=== PATIENT | female | born 1980 | race Caucasian/White ===

== ENCOUNTER → 2016-12-12 | Outpatient (CLI) | payer MEDICARE, OTHER ==
--- NOTE | 2016-12-12 21:36 | MR ---
EXAMINATION TYPE: MR lumbar spine wo con DATE OF EXAM: 12/12/2016 8:52 PM COMPARISON: NONE HISTORY: low back pain since childhood CONTRAST: 0 mL intravenous MultiHance. TECHNIQUE: Multiplanar, multisequence images of the lumbar spine were acquired. FINDINGS: Cord terminates at the T12-L1 level. Minimal disc desiccation is present L4-5 L5-S1. L5-S1: No significant disc bulge or disc herniation. No spinal canal stenosis. No foraminal stenosi s. There may be some mild disc space narrowing.. L4-L5 through T12-L1: No significant disc bulge or disc herniation. No spinal canal stenosis. No fo raminal stenosis. IMPRESSION: 1. Minimal disc desiccation L4-5, L5-S1. 2. Minimal disc space narrowing at L5-S1..
== END | disposition home or self-care (01) ==
LOC: RADMRIMAIN 20:13
PROVIDERS: ATTEND Nurse Practitioner Acute Care
DX: M48.07 Spinal stenosis, lumbosacral region (principal); Z91.041 Radiographic dye allergy status
CPT/HCPCS: 72148

== ENCOUNTER → 2017-02-24 | Outpatient (CLI) | payer MEDICARE, OTHER ==
--- NOTE | 2017-02-24 23:17 | MR ---
EXAMINATION TYPE: MR foot RT wo con DATE OF EXAM: 02/24/2017 COMPARISON: NONE HISTORY: Pain, Redness, Swelling, Limited ROM, Right Foot Standard multiplanar, multisequence MRI departmental protocol Multiplanar, multisequence images of the right foot were obtained. There is no contrast. FINDINGS: The plantar fascia appears intact. On the T2 images there is increased signal in the planta r aspect of the hindfoot inferior to the calcaneus. The metatarsals are intact. Tarsal bones appear i ntact. I see no fracture. Ankle mortise is anatomic. Collateral ligaments of the ankle are intact. Ac hilles tendon appears normal. The medial and lateral flexor tendons of the ankle are intact. Extensor tendons of the ankle are intact. There is evidence of mild joint effusion involving the first MP darnell nt. There is a small ankle joint effusion also. IMPRESSION: There is mild soft tissue edema involving the plantar aspect of the hindfoot of uncertain significanc e. There is mild effusion of the first MP joint that is consistent with nonspecific synovitis. No fractu re. No evidence of ligament or tendon tear. There is mild ankle joint effusion also consistent with n onspecific synovitis.
== END | disposition home or self-care (01) ==
LOC: RADMRIMAIN 18:19
PROVIDERS: ATTEND Podiatrist Foot & Ankle Surgery
DX: S96.211A Strain of intrinsic muscle and tendon at ankle and foot level, right foot, initial encounter (principal)

== ENCOUNTER → 2017-05-16 | Outpatient (CLI) | payer MEDICARE, OTHER ==
--- NOTE | 2017-05-16 20:25 | MR ---
EXAMINATION TYPE: MR cervical spine wo con DATE OF EXAM: 05/16/2017 COMPARISON: Cervical spine MRI HISTORY: Constant Neck pain, Cortisone Injection 05/12/2017 TECHNIQUE: Multiplanar, multisequence images of the cervical spine were acquired. C2-C3: No evidence for degenerative disc disease. No disc bulge/herniation or protrusion. No Canal stenosis. Foramina are patent bilaterally. C3-C4: Posterior central disc herniation may contact the anterior cervical cord. Lateral extension of endplate disc complex encroaches somewhat on the neural foramina, no significant central stenosis. T here is loss of disc height signal. C4-C5: Mild bilateral foraminal encroachment is present. No evident central canal stenosis. Minimal c entral posterior disc bulge present. There is loss of disc height and signal. C5-C6: Small central posterior disc bulge causes slight anterior mass effect on the thecal sac. There is mild right-sided foraminal encroachment. No significant central stenosis. Loss of disc height and signal compatible with disc desiccation and degenerative disc disease. C6-C7: Central posterior disc bulge causes mild anterior mass effect on the thecal sac. There is loss of disc height and signal. C7-T1: No evidence for degenerative disc disease. No disc bulge/herniation or protrusion. No Canal stenosis. Foramina are patent bilaterally. Cervical segments are intact. There is normal alignment. Cervical spinal cord is of normal signal. Craniovertebral junction relationships are within normal limits. Cervical vertebral bodies show pre served height. IMPRESSION: Degenerative disc disease as described.
== END | disposition home or self-care (01) ==
LOC: RADMRIMAIN 19:15
PROVIDERS: ATTEND Nurse Practitioner Acute Care
DX: M50.30 Other cervical disc degeneration, unspecified cervical region (principal)
CPT/HCPCS: 72141

== ENCOUNTER → 2018-03-19 | Outpatient (CLI) | payer MEDICARE, OTHER ==
--- NOTE | 2018-03-19 20:54 | CT ---
EXAMINATION TYPE: CT soft tissue neck wo con DATE OF EXAM: 03/19/2018 HISTORY: Upper thoracic neck pain and swelling. COMPARISON: Thyroid ultrasound November 16, 2015. MRI cervical spine May 16, 2017 CT DLP: 744.6 mGycm. Automated Exposure Control for Dose Reduction was Utilized. TECHNIQUE: CT scan of the neck is performed without IV contrast, axial images are obtained, coronal and sagittal reformatted images are reviewed. FINDINGS: Lack of IV contrast is noted to limit evaluation for mucosal lesions and neck adenopathy. Airway: Thyroid gland appears normal in size. Parotid/submandibular glands: No gross abnormality see n. Carotid/Vascular Structures: No significant calcified plaque. Osseous Structures: No suspicious abnormality is seen. Other: There are prominent but subcentimeter lymph nodes throughout the neck bilaterally including in volvement in the anterior superior mediastinum of the upper to mid thorax. No cysts definitive greate r than 1 cm neck adenopathy is identified. There is near complete opacified right maxillary sinus. To be product of large mucous retention cyst or polyp seen best on coronal image 22 measuring 2.5 cm long axis. IMPRESSION: No suspicious mass or focal fluid collection identified.
== END | disposition home or self-care (01) ==
LOC: RADCTMAIN 16:52
PROVIDERS: ATTEND Psychiatry & Neurology Neurology
DX: R22.0 Localized swelling, mass and lump, head (principal); Z91.041 Radiographic dye allergy status
CPT/HCPCS: 70490

== ENCOUNTER → 2018-05-08 | Outpatient (CLI) | payer MEDICARE, OTHER | END | disposition home or self-care (01) | LOC: LABWHC1 12:47 | PROVIDERS: ATTEND Nurse Practitioner Acute Care | DX: I49.9 Cardiac arrhythmia, unspecified (principal) | CPT/HCPCS: 93005 ==

== ENCOUNTER → 2018-08-10 | Outpatient (CLI) | payer MEDICARE, OTHER ==
[2018-08-10 13:08] LABS: Basophils # (A) 0.1 k/uL (0-0.2); Basophils % (A) 1 %; Eosinophils # (A) 0.2 k/uL (0-0.7); Eosinophils % (A) 2 %; HCT 43.8 % (34.0-46.0); HGB 14.1 gm/dL (11.4-16.0); Lymphocytes # (A) 3.5 k/uL (1.0-4.8); Lymphocytes % (A) 34 %; MCH 32.3 pg (25.0-35.0); MCHC 32.3 g/dL (31.0-37.0); MCV 100.2 fL (80.0-100.0); Mean Platelet Volume 6.3; Monocytes # (A) 0.4 k/uL (0-1.0); Monocytes % (A) 4 %; Neutrophils % (A) 58 %; Platelet Count 273 k/uL (150-450); RBC 4.37 m/uL (3.80-5.40); RDW 12.7 % (11.5-15.5); WBC 10.3 k/uL (3.8-10.6)
[2018-08-10 15:07] LABS: Erythrocyte Sedimentation Rate 3 mm/hr (0-20)
[2018-08-10 19:52] LABS: Albumin 4.5 g/dL (3.80-4.90); Albumin/Globulin Ratio 2.65 (1.20-2.10); Anion Gap 11.7 mmol/L (4.00-12.00); C Reactive Protein 0.7 mg/dL (0.0-0.8); Calcium 9.1 mg/dL (8.7-10.3); Carbon Dioxide 24.3 mmol/L (21.6-31.8); Globulin 1.7 g/dL (1.6-3.3); Potassium 4.2 mmol/L (3.5-5.5); Total Bilirubin 0.4 mg/dL (0.3-1.2); Total Protein 6.2 g/dL (6.2-8.2)
[2018-08-10 20:35] LABS: Iron Saturation 22.77 (12.00-45.00); Rheumatoid Factor 8 IU/mL (0-15)
== END | disposition home or self-care (01) ==
LOC: LABWHC1 12:15
PROVIDERS: ATTEND Nurse Practitioner Acute Care
DX: M35.3 Polymyalgia rheumatica (principal); E61.1 Iron deficiency
CPT/HCPCS: 36415; 80053; 82085; 83540; 83550; 84466; 85025; 85652; 86038; 86140; 86431

== ENCOUNTER → 2019-06-07 | Outpatient (CLI) | payer MEDICARE, OTHER ==
[2019-06-07 11:23] LABS: Basophils # (A) 0.1 k/uL (0-0.2); Basophils % (A) 1 %; Eosinophils # (A) 0.3 k/uL (0-0.7); Eosinophils % (A) 3 %; HCT 43.8 % (34.0-46.0); HGB 15.2 gm/dL (11.4-16.0); Lymphocytes % (A) 40 %; MCH 34.9 pg (25.0-35.0); MCHC 34.8 g/dL (31.0-37.0); MCV 100.4 fL (80.0-100.0); Monocytes # (A) 0.4 k/uL (0-1.0); Monocytes % (A) 4 %; Neutrophils # (A) 5.1 k/uL (1.3-7.7); Neutrophils % (A) 51 %; Platelet Count 273 k/uL (150-450); RBC 4.36 m/uL (3.80-5.40); RDW 12.2 % (11.5-15.5)
[2019-06-07 16:17] LABS: African American GFR (CKD) 125.6 (60.0-200.0); Albumin 4.2 g/dL (3.80-4.90); Albumin/Globulin Ratio 2.21 (1.60-3.17); Anion Gap 10.6 mmol/L (4.00-12.00); BUN/Creat Ratio 14.29 Ratio (12.00-20.00); Calcium 8.9 mg/dL (8.7-10.3); Carbon Dioxide 27.4 mmol/L (21.6-31.8); Chol/HDL Ratio 3.54; Globulin 1.9 g/dL (1.6-3.3); Potassium 4.1 mmol/L (3.5-5.5); Total Bilirubin 0.4 mg/dL (0.3-1.2); Total Protein 6.1 g/dL (6.2-8.2)
== END | disposition home or self-care (01) ==
LOC: LABWHC1 10:48
PROVIDERS: ATTEND Nurse Practitioner Family
DX: E03.9 Hypothyroidism, unspecified (principal); I10 Essential (primary) hypertension; E78.1 Pure hyperglyceridemia; E11.65 Type 2 diabetes mellitus with hyperglycemia; E78.00 Pure hypercholesterolemia, unspecified
CPT/HCPCS: 36415; 80053; 80061; 83721; 84439; 84443; 85025

== ENCOUNTER → 2019-09-27 | Outpatient (CLI) | payer MEDICARE, OTHER | END | disposition home or self-care (01) | LOC: LABWHC1 11:11 | PROVIDERS: ATTEND Nurse Practitioner Acute Care | DX: I49.9 Cardiac arrhythmia, unspecified (principal) | CPT/HCPCS: 36415; 93005 ==

== ENCOUNTER → 2020-01-27 | Outpatient (CLI) | payer MEDICARE, OTHER ==
--- NOTE | 2020-01-27 10:12 | CT ---
EXAMINATION TYPE: CT sinus wo con DATE OF EXAM: 01/27/2020 COMPARISON: Soft tissue neck 03/19/2018 HISTORY: Chronic sinusitis CT DLP: 628.7 mGycm. Automated Exposure Control for Dose Reduction was Utilized. TECHNIQUE: CT scan of the sinuses is performed without contrast, axial images are obtained, coronal r eformatted images are also reviewed. FINDINGS: There is persistent density noted within the right maxillary sinus, lobular appearance is s imilar to prior exam, findings may represent mucous retention cyst. Ostiomeatal units are patent. Muc operiosteal thickening is present in the bilateral maxillary sinuses, there is no air-fluid level pre sent. Visualized portion of mastoid air cells show no abnormal opacification. The globes are intact bilate rally. IMPRESSION: Findings may represent mucous retention cyst, chronic sinusitis.
== END | disposition home or self-care (01) ==
LOC: RADCTMAIN 07:08
PROVIDERS: ATTEND Otolaryngology
DX: J32.9 Chronic sinusitis, unspecified (principal)
CPT/HCPCS: 70486

== ENCOUNTER → 2020-09-11 | Outpatient (CLI) | payer MEDICARE, OTHER | END | disposition home or self-care (01) | LOC: LABWHC1 11:03 | PROVIDERS: ATTEND Family Medicine | DX: Z01.818 Encounter for other preprocedural examination (principal) | CPT/HCPCS: 36415; 93005 ==

== ENCOUNTER → 2021-01-29 | Outpatient (CLI) | payer MEDICARE, OTHER | END | disposition home or self-care (01) | CPT/HCPCS: 77063; 77067; 81241 ==

== ENCOUNTER → 2021-11-24 | Outpatient (CLI) | payer MEDICARE, OTHER ==
--- NOTE | 2021-11-24 16:32 | US ---
EXAMINATION TYPE: US abdomen complete DATE OF EXAM: 11/24/2021 COMPARISON: NONE CLINICAL HISTORY: R10.11 RT UPPER QUAD PAIN. EXAM MEASUREMENTS: Liver Length: 18.6 cm Gallbladder Wall: 0.2 cm CBD: 0.3 cm Spleen: 10.6 cm Right Kidney: 13.4 x 4.5 x 5.7 cm Left Kidney: 13.3 x 5.2 x 5.5 cm Patient of large body habitus technically difficult study. Pancreas: visualized portions appear wnl Liver: Increased attenuation, measures large Gallbladder: wnl Evidence for sonographic Amezcua's sign: no CBD: wnl Spleen: wnl Right Kidney: measures. Mildly enlarged Left Kidney: measures mildly enlarged inferior pole appears to show possible dilated renal pelvis Upper IVC: wnl Abd Aorta: visualized portions appear wnl No aneurysm is visualized abdominal aorta. Visualized pancreas appears within normal limits. IVC is s een near the hepatic dome. Heterogeneous hyperechoic appearance of the liver. Violation for focal masses is suboptimal due to th e heterogeneity. No surrounding ascites. No intraluminal gallstones. No biliary dilatation. No hydronephrosis in either kidney. Kidneys symmetric and mildly enlarged in size. Spleen is normal in size. IMPRESSION: Suspect diffuse fatty infiltration of liver. Suboptimal study without acute finding ident ified.
== END | disposition home or self-care (01) ==
LOC: RADUSWWP 09:25
PROVIDERS: ATTEND Family Medicine
DX: R10.11 Right upper quadrant pain (principal)
CPT/HCPCS: 76700

== ENCOUNTER 2023-08-12 11:58 | Emergency (ER) | payer MEDICARE, OTHER ==
[2023-08-12] MEDS ORDERED: ACETAMINOPHEN TAB 500 MG TAB PO STA (12:28)
[2023-08-12] MEDS ORDERED: IBUPROFEN 800 MG TAB PO STA (12:28)
[2023-08-12] MEDS ORDERED: ONDANSETRON ODT 4 MG TAB PO STA (12:28)
--- NOTE | 2023-08-12 12:34 | ED ---
Head Injury HPI - General Chief complaint: Fall Stated complaint: HEAD INJURY Time Seen by Provider: 08/12/23 12:09 Source: patient, EMS, RN notes reviewed Mode of arrival: EMS Limitations: no limitations - History of Present Illness Initial comments: This is a 43-year-old female who presents to the emergency department for a head injury. States that she was changing the bandage on her finger last night, and it grossed her out, and she became dizzy and fell backwards and hit her head. She injured her finger over [place] and ended up losing half of the finger, and whenever she changes her bandage, it grosses her out. States that when she hit her head, she believes that she lost consciousness. She is not taking any blood thinners. She continues to complain of a headache and reports associated nausea. She has generalized soreness, but denies any other injuries. MD Complaint: head injury - Related Data Previous Rx's Medication Instructions Recorded ARIPiprazole [Abilify] 5 mg PO DAILY 30 Days #30 tab 10/11/22 Atorvastatin [Lipitor] 20 mg PO DAILY 30 Days #30 tab 10/11/22 Fenofibrate [Lofibra] 160 mg PO HS 30 Days #30 tab 10/11/22 Nicotine 14Mg/24Hr Patch [Habitrol] 1 patch TRANSDERM DAILY 14 Days 10/11/22 #14 patch Pantoprazole [Protonix] 40 mg PO AC-BRKFST 30 Days #30 tab 10/11/22 lisinopriL [Zestril] 5 mg PO DAILY 30 Days #30 tab 10/11/22 metFORMIN HCL [Glucophage] 1,000 mg PO BID 30 Days #120 tab 10/11/22 Allergies/Adverse reactions: Allergies Allergy/AdvReac Type Severity Reaction Status Date / Time No Known Allergies Allergy Verified 10/05/22 21:07 Review of Systems ROS Statement: Those systems with pertinent positive or pertinent negative responses have been documented in the HPI. ROS Other: All systems not noted in ROS Statement are negative. Past Medical History Past Medical History: Diabetes Mellitus, Osteoarthritis (OA) Additional Past Medical History / Comment(s): hypomobility syndrome, leukocytosis History of Any Multi-Drug Resistant Organisms: None Reported Past Surgical History: Orthopedic Surgery Past Anesthesia/Blood Transfusion Reactions: Unable to Obtain Past Psychological History: PTSD Smoking Status: Current every day smoker Past Alcohol Use History: Occasional Past Drug Use History: Marijuana General Exam Limitations: no limitations General appearance: alert, in no apparent distress Head exam: Present: atraumatic, normocephalic, normal inspection Eye exam: Present: normal appearance, PERRL, EOMI. Absent: scleral icterus, conjunctival injection, periorbital swelling Respiratory exam: Present: normal lung sounds bilaterally. Absent: respiratory distress, wheezes, rales, rhonchi, stridor Cardiovascular Exam: Present: regular rate, normal rhythm, normal heart sounds. Absent: systolic murmur, diastolic murmur, rubs, gallop, clicks Neurological exam: Present: alert, oriented X3, CN II-XII intact Psychiatric exam: Present: normal affect, normal mood Skin exam: Present: warm, dry, intact, normal color. Absent: rash Course Vital Signs 08/12/23 08/12/23 12:14 14:41 Pulse Rate 108 H 98 Respiratory 20 18 Rate Blood Pressure 125/94 126/78 O2 Sat by Pulse 98 99 Oximetry Medical Decision Making - Medical Decision Making This is a 43-year-old female who presents to the emergency department for a head injury. Was pt. sent in by a medical professional or institution? @ -No Did you speak to anyone other than the patient for history? @ -No Did you review nursing and triage notes? @ -Yes, and I agree, it is accurate with regards to the patient's symptoms. Were old charts reviewed? @ -No Differential Diagnosis? @ -Differential Diagnosis Head Injury: Contusion, hematoma, intracranial hemorrhage, skull fracture, whiplash, concussion, this is not meant to be an all-inclusive list. EKG interpreted by me (3pts min.)? @ -Not obtained X-rays interpreted by me (1pt min.)? @ -Not obtained CT interpreted by me (1pt min.)? @ -Computed tomography scan of the brain and c-spine obtained. My interpretation identifies no evidence of an acute intracranial hemorrhage, skull fracture, or cervical spine fracture. U/S interpreted by me (1pt. min.)? @ -Not obtained What testing was considered but not performed? (CT, X-rays, U/S, labs)? Why? @ -None What meds were considered but not given? Why? @ -None Did you discuss the management of the patient with other professionals? @ -No Did you reconcile home meds? @ -No Was smoking cessation discussed for >3mins.? @ -I discussed smoking cessation for greater than 3 minutes. The risk of smoking were discussed with the patient including but not limited to risks of cancer, stroke, coronary artery disease and COPD. Also discussed with patient were multiple methods of quitting smoking. Lastly we discussed the financial cost of smoking. Was critical care preformed (if so, how long)? @ -No Were there social determinants of health that impacted care today? How? (Homelessness, low income, unemployed, alcoholism, drug addiction, transpor tation, low edu. Level, literacy, decrease access to med. care, alf, rehab)? @ -No Was there de-escalation of care discussed even if they declined? (Discuss DNR or withdrawal of care, Hospice)? @ -No What co-morbidities impacted this encounter? (DM, HTN, Smoking, COPD, CAD, Cancer, CVA, Hep., AIDS, mental health diagnosis, sleep apnea, morbid obesity)? @ -None Was patient admitted / discharged? @ -Discharged. CT scan of the brain/c-spine obtained revealing no acute process. Patient treated with Ibuprofen, Tylenol, and Zofran with improvement in symptoms. Advised Ibuprofen and Tylenol as needed for any additional headaches. Patient discharged home in stable condition. Undiagnosed new problem with uncertain prognosis? @ -None Drug Therapy requiring intensive monitoring for toxicity (Heparin, Nitro, I nsulin, Cardizem)? @ -None Were any procedures done? @ -None Diagnosis/symptom? @ -Head injury Acute, or Chronic, or Acute on Chronic? @ -Acute Uncomplicated (without systemic symptoms) or Complicated (systemic symptoms)? @ -Uncomplicated Side effects of treatment? @ -None Exacerbation, Progression, or Severe Exacerbation] @ -Not applicable Poses a threat to life or bodily function? @ -No Return precautions reviewed in depth, the patient is instructed to return to the emergency department with any new, worsening, or concerning symptoms. Patient verbalized understanding. This case was discussed in detail with the attending ED physician, Dr. Barajas. Presentation, findings, and treatment plan discussed in detail as well. - Radiology Data Radiology results: report reviewed, image reviewed Disposition Clinical Impression: Nicotine dependence, Head injury Disposition: HOME SELF-CARE Instructions (If sedation given, give patient instructions): Head Injury (ED) Additional Instructions: Return to the emergency department with any new, worsening, or concerning symptoms. Follow up with your primary care provider in 1-2 days. Is patient prescribed a controlled substance at d/c from ED?: No Referrals: Tj Kumar MD [Primary Care Provider] - 1-2 days Time of Disposition: 14:14
[2023-08-12] MEDS ORDERED: HYDROcodone/APAP 7.5-325MG 1 EACH TAB PO ONE (13:49)
--- NOTE | 2023-08-12 13:58 | CT ---
EXAMINATION TYPE: CT brain cspine wo con DATE OF EXAM: 08/12/2023 COMPARISON: MRI cervical spine 05/16/2017 HISTORY: Head injury x [address] DLP: 1319.8 mGycm, Automated exposure control for dose reduction was used. CONTRAST: None CT of the brain is performed utilizing 3 mm thick sections through the posterior fossa and 3 mm thick sections through the remaining calvarium. Study is performed within 24 hours of arrival to the hospital. No abnormal hyperdensity is present to suggest an acute intracranial hemorrhage. No mass lesion is evident. No acute infarcts are evident. Ventricles and sulci are appropriate for the patient age. Paranasal sinuses and mastoid air cells within the [id number] are clear. IMPRESSIONS: 1. No acute intracranial process. Follow-up MRI can be performed as clinically indicated. CT cervical spine. COMPARISON: None CT of the cervical spine is performed in the axial plane at 2 mm thick sections. Reconstructed image s in the coronal, and sagittal plane are reviewed on the computer. No acute fractures are evident. There is slight kyphosis present related to patient positioning or muscle spasm. Disc heights are preserved. Vertebral body heights are preserved. No spinal canal stenosis is evident. No neural foraminal stenosis is evident. IMPRESSION: 1. Mild kyphosis related to patient positioning or muscle spasm. 2. No acute osseous abnormality radiographically apparent.
[2023-08-12] MEDS ORDERED: ONDANSETRON 4 MG ODT STARTER PACK 2 TAB BTL PO STA (14:06)
[2023-08-12 15:02] VITALS: BP 126/78; PULSE 98; RESP 18
== END 2023-08-12 14:43 | disposition home or self-care (01) ==
LOC: EC 11:58
DX: S09.90XA Unspecified injury of head, initial encounter (principal); E11.9 Type 2 diabetes mellitus without complications; F12.90 Cannabis use, unspecified, uncomplicated; F17.200 Nicotine dependence, unspecified, uncomplicated; W18.30XA Fall on same level, unspecified, initial encounter
CPT/HCPCS: 72125; 70450; 99285; S0119

== ENCOUNTER 2024-04-03 21:22 | Emergency (ER) | payer MEDICARE, OTHER ==
[2024-04-03 23:19] LABS: Glucose,Whole Blood 236 mg/dL (70-110)
[2024-04-04 00:54] LABS: Basophils % (A) 0 %; Eosinophils # (A) 0.2 k/uL (0-0.7); Eosinophils % (A) 1 %; HCT 41.1 % (34.0-46.0); HGB 13.9 gm/dL (11.4-16.0); Lymphocytes # (A) 3.7 k/uL (1.0-4.8); Lymphocytes % (A) 30 %; MCH 30.6 pg (25.0-35.0); MCHC 33.9 g/dL (31.0-37.0); MCV 90.3 fL (80.0-100.0); Mean Platelet Volume 7.2; Monocytes # (A) 0.6 k/uL (0-1.0); Monocytes % (A) 5 %; Neutrophils # (A) 7.6 k/uL (1.3-7.7); Neutrophils % (A) 63 %; Platelet Count 329 k/uL (150-450); RBC 4.55 m/uL (3.80-5.40); RDW 12.5 % (11.5-15.5); WBC 12.2 k/uL (3.8-10.6)
[2024-04-04 01:07] LABS: Potassium 4.1 mmol/L (3.5-5.1)
[2024-04-04 01:10] LABS: ALT 21 U/L (4-34); AST 20 U/L (14-36); African American GFR (CKD) >90 (>60 ml/min/1.73 sqM); Albumin 3.8 g/dL (3.5-5.0); Alkaline Phosphatase 64 U/L (38-126); Anion Gap 6 mmol/L; Blood Urea Nitrogen 11 mg/dL (7-17); Calcium 9.3 mg/dL (8.4-10.2); Carbon Dioxide 23 mmol/L (22-30); Chloride 106 mmol/L (98-107); Glucose 233 mg/dL (74-99); Non-African American GFR(CKD) >90 (>60 ml/min/1.73 sqM); Sodium 135 mmol/L (137-145); Total Bilirubin 0.5 mg/dL (0.2-1.3); Total Protein 6.3 g/dL (6.3-8.2)
[2024-04-04 07:07] LABS: Appearance,Urine Cloudy (Clear); Bacteria,Urine Few /hpf; Bilirubin,Urine Negative (Negative); Blood,Urine Negative (Negative); Color,Urine Yellow; Glucose,Urine (UA) 4+ (Negative); Hyaline Casts,Urine 19 /lpf (0-2); Ketones,Urine Negative (Negative); Leukocyte Esterase,Urine Negative (Negative); Mucus,Urine Many /hpf; Nitrite,Urine Negative (Negative); PH, Urine 5.5 (5.0-8.0); Protein,Urine Trace (Negative); RBC,Urine 4 /hpf (0-5); Specific Gravity,Urine 1.031 (1.001-1.035); Squamous Epithelial Cell,Urine 16 /hpf (0-4); Urobilinogen,Urine <2.0 mg/dL (<2.0); WBC,Urine 5 /hpf (0-5)
[2024-04-04 07:21] LABS: Amphetamine Screen,Urine Detected (NotDetected); Barbiturate Screen,Urine Not Detected (NotDetected); Benzodiazepines Screen,Urine Not Detected (NotDetected); Cocaine Screen,Urine Not Detected (NotDetected); Methadone Screen, Urine Not Detected (NotDetected); Opiate Screen,Urine Not Detected (NotDetected); Oxycodone Screen, Urine Not Detected (NotDetected); Phencyclidine Screen,Urine Not Detected (NotDetected); Tricyclic Antidepressant,Urine Not Detected (NotDetected); Urn Cannabinoid Scrn Detected (NotDetected)
--- NOTE | 2024-04-04 09:11 | ED ---
Psych HPI - General Chief Complaint: Psychiatric Symptoms Stated Complaint: Mental health Time Seen by Provider: 04/04/24 07:54 Source: patient, police Mode of arrival: EMS - History of Present Illness Initial Comments: 44-year-old female presents emergency department with abnormal behavior. Mother petitioned the patient. She has had racing and nonsensical thoughts. When I sp eak to the patient she states that she is "writing a book on quantum physics". She states that she is upset that she was removed from her house because she is in the middle of writing the book. She thinks that her mother is concerned about her because she "shared the book with her". It was reported that the patient has chalk writing all over her holder in her house. Patient has been hospitalized previously for her mental health. Patient denies any suicidal or homicidal ideations. - Related Data Previous Rx's Medication Instructions Recorded ARIPiprazole [Abilify] 5 mg PO DAILY 30 Days #30 tab 10/11/22 Atorvastatin [Lipitor] 20 mg PO DAILY 30 Days #30 tab 10/11/22 Fenofibrate [Lofibra] 160 mg PO HS 30 Days #30 tab 10/11/22 Nicotine 14Mg/24Hr Patch [Habitrol] 1 patch TRANSDERM DAILY 14 Days 10/11/22 #14 patch Pantoprazole [Protonix] 40 mg PO AC-BRKFST 30 Days #30 tab 10/11/22 lisinopriL [Zestril] 5 mg PO DAILY 30 Days #30 tab 10/11/22 metFORMIN HCL [Glucophage] 1,000 mg PO BID 30 Days #120 tab 10/11/22 Allergies Allergy/AdvReac Type Severity Reaction Status Date / Time No Known Allergies Allergy Verified 10/05/22 21:07 Review of Systems ROS Statement: Those systems with pertinent positive or pertinent negative responses have been documented in the HPI. ROS Other: All systems not noted in ROS Statement are negative. Past Medical History Past Medical History: Diabetes Mellitus, Osteoarthritis (OA) Additional Past Medical History / Comment(s): hypomobility syndrome, leukocytosis History of Any Multi-Drug Resistant Organisms: None Reported Past Surgical History: Orthopedic Surgery Past Anesthesia/Blood Transfusion Reactions: Unable to Obtain Past Psychological History: PTSD Smoking Status: Current every day smoker Past Alcohol Use History: Occasional Past Drug Use History: Marijuana General Exam Limitations: altered mental status General appearance: alert, anxious Head exam: Present: atraumatic, normocephalic, normal inspection Eye exam: Present: normal appearance, PERRL, EOMI. Absent: scleral icterus, conjunctival injection, periorbital swelling ENT exam: Present: normal exam, mucous membranes moist Neck exam: Present: normal inspection. Absent: tenderness, meningismus, lymphadenopathy Respiratory exam: Present: normal lung sounds bilaterally. Absent: respiratory distress, wheezes, rales, rhonchi, stridor Cardiovascular Exam: Present: tachycardia GI/Abdominal exam: Present: soft, normal bowel sounds. Absent: distended, tenderness, guarding, rebound, rigid Psychiatric exam: Present: agitated, anxious, other (non sensical) Course Vital Signs 04/03/24 04/04/24 21:26 06:08 Temperature 98.3 F 98.1 F Pulse Rate 136 H 83 Respiratory 16 18 Rate Blood Pressure 146/91 114/77 O2 Sat by Pulse 97 99 Oximetry Medical Decision Making - Medical Decision Making Was pt. sent in by a medical professional or institution ([facility]att, MANAGER MAIL, urgent care, hospital, or custodial...) When possible be specific @ -No Did you speak to anyone other than the patient for history (EMS, parent, family, police, friend...)? What history was obtained from this source @ -Spoke with EMS Did you review nursing and triage notes (agree or disagree)? Why? @ -I reviewed and agree with nursing and triage notes Were old charts reviewed (outside hosp., previous admission, EMS record, old EKG, old radiological studies, urgent care reports/EKG's, custodial records)? Report findings @ -No old charts were reviewed Differential Diagnosis (chest pain, altered mental status, abdominal pain women, abdominal pain men, vaginal bleeding, weakness, fever, dyspnea, syncope, headache, dizziness, GI bleed, back pain, seizure, CVA, palpatations, mental health, musculoskeletal)? @ -Differential Mental Health Depression, anxiety, bipolar, psychosis, schizophrenia, borderline personality, situational depression, adjustment disorder, behavioral disorder, brain tumor, malingering, substance abuse, encephalopathy, medication reaction, dementia, hypothyroidism, degenerative neurologic disorder, lupus.... This is not meant to be all-inclusive list EKG interpreted by me (3pts min.). @ -Not done X-rays interpreted by me (1pt min.). @ -None done CT interpreted by me (1pt min.). @ -None done U/S interpreted by me (1pt. min.). @ -None done What testing was considered but not performed or refused? (CT, X-rays, U/S, labs)? Why? @ -None What meds were considered but not given or refused? Why? @ -None Did you discuss the management of the patient with other professionals (lucio hathaway i.e. , PA, MANAGER MAIL, lab, RT, psych nurse, bilingual social worker, jacquard loom heddles tier, teacher, cra officer, case filler)? Give summary @ -Spoke with EPS to evaluate the patient and states that the patient requires transfer Was smoking cessation discussed for >3mins.? @ -No Was critical care preformed (if so, how long)? @ -No Were there social determinants of health that impacted care today? How? (Homelessness, low income, unemployed, alcoholism, drug addiction, transportation, low edu. Level, literacy, decrease access to med. care, residential, rehab)? @ -No Was there de-escalation of care discussed even if they declined (Discuss DNR or withdrawal of care, Hospice)? DNR status @ -No What co-morbidities impacted this encounter? (DM, HTN, Smoking, COPD, CAD, Cancer, CVA, ARF, Chemo, Hep., AIDS, mental health diagnosis, sleep apnea, morbid obesity)? @ -Agoraphobia Was patient admitted / discharged? Hospital course, mention meds given and route, prescriptions, significant lab abnormalities, going to OR and other pertinent info. @ -Patient seen and evaluated in room 14. Thorough history and physical exam was performed. Patient is evaluated by EPS. She does require transfer. I do put in labs for transfer. Home medications are not reconciled at this time and therefore not ordered. Patient pending transfer Undiagnosed new problem with uncertain prognosis? @ -No Drug Therapy requiring intensive monitoring for toxicity (Heparin, Nitro, Insulin, Cardizem)? @ -No Were any procedures done? @ -No Diagnosis/symptom? @ -Acute psychosis Acute, or Chronic, or Acute on Chronic? @ -Acute Uncomplicated (without systemic symptoms) or Complicated (systemic symptoms)? @ -Complicated Side effects of treatment? @ -No Exacerbation, Progression, or Severe Exacerbation? @ -No Poses a threat to life or bodily function? How? (Chest pain, [place], [place], pneumonia, PE, COPD, DKA, ARF, appy, cholecystitis, CVA, Diverticulitis, Homicidal, Suicidal, threat to staff... and all critical care pts) @ -No - Lab Data Result diagrams: 04/03/24 23:59 04/03/24 23:59 Lab Results 04/03/24 04/03/24 04/03/24 Range/Units 23:18 23:59 23:59 WBC 12.2 H (3.8-10.6) k/uL RBC 4.55 (3.80-5.40) m/uL Hgb 13.9 (11.4-16.0) gm/dL Hct 41.1 (34.0-46.0) % MCV 90.3 (80.0-100.0) fL MCH 30.6 (25.0-35.0) pg MCHC 33.9 (31.0-37.0) g/dL RDW 12.5 (11.5-15.5) % Plt Count 329 (150-450) k/uL MPV 7.2 Neutrophils % 63 % Lymphocytes % 30 % Monocytes % 5 % Eosinophils % 1 % Basophils % 0 % Neutrophils # 7.6 (1.3-7.7) k/uL Lymphocytes # 3.7 (1.0-4.8) k/uL Monocytes # 0.6 (0-1.0) k/uL Eosinophils # 0.2 (0-0.7) k/uL Basophils # 0.0 (0-0.2) k/uL Sodium 135 L (137-145) mmol/L Potassium 4.1 (3.5-5.1) mmol/L Chloride 106 (98-107) mmol/L Carbon Dioxide 23 (22-30) mmol/L Anion Gap 6 mmol/L BUN 11 (7-17) mg/dL Creatinine 0.45 L (0.52-1.04) mg/dL Est GFR (CKD-EPI)AfAm >90 (>60 ml/min/1.73 sqM) Est GFR (CKD-EPI)NonAf >90 (>60 ml/min/1.73 sqM) Glucose 233 H (74-99) mg/dL POC Glucose (mg/dL) 236 H (70-110) mg/dL POC Glu Coach Operator ID Jeffry Beavers Calcium 9.3 (8.4-10.2) mg/dL Total Bilirubin 0.5 (0.2-1.3) mg/dL AST 20 (14-36) U/L ALT 21 (4-34) U/L Alkaline Phosphatase 64 (38-126) U/L Total Protein 6.3 (6.3-8.2) g/dL Albumin 3.8 (3.5-5.0) g/dL Urine Color Urine Appearance (Clear) Urine pH (5.0-8.0) Ur Specific [place] (1.001-1.035) Urine Protein (Negative) Urine Glucose (UA) (Negative) Urine Ketones (Negative) Urine Blood (Negative) Urine Nitrite (Negative) Urine Bilirubin (Negative) Urine Urobilinogen (<2.0) mg/dL Ur Leukocyte Esterase (Negative) Urine RBC (0-5) /hpf Urine WBC (0-5) /hpf Ur Squamous Epith Cells (0-4) /hpf Urine Bacteria (None) /hpf Hyaline Casts (0-2) /lpf Urine Mucus (None) /hpf Urine HCG, Qual (Not Detectd) Urine Opiates Screen (NotDetected) Ur Oxycodone Screen (NotDetected) Urine Methadone Screen (NotDetected) Ur Barbiturates Screen (NotDetected) U Tricyclic Antidepress (NotDetected) Ur Phencyclidine Scrn (NotDetected) Ur Amphetamines Screen (NotDetected) U Methamphetamines Scrn (NotDetected) U Benzodiazepines Scrn (NotDetected) Urine Cocaine Screen (NotDetected) U Marijuana (THC) Screen (NotDetected) SARS-CoV-2 (PCR) (Not Detectd) 04/04/24 04/04/24 04/04/24 Range/Units 00:34 06:44 06:44 WBC (3.8-10.6) k/uL RBC (3.80-5.40) m/uL Hgb (11.4-16.0) gm/dL Hct (34.0-46.0) % MCV (80.0-100.0) fL MCH (25.0-35.0) pg MCHC (31.0-37.0) g/dL RDW (11.5-15.5) % Plt Count (150-450) k/uL MPV Neutrophils % % Lymphocytes % % Monocytes % % Eosinophils % % Basophils % % Neutrophils # (1.3-7.7) k/uL Lymphocytes # (1.0-4.8) k/uL Monocytes # (0-1.0) k/uL Eosinophils # (0-0.7) k/uL Basophils # (0-0.2) k/uL Sodium (137-145) mmol/L Potassium (3.5-5.1) mmol/L Chloride (98-107) mmol/L Carbon Dioxide (22-30) mmol/L Anion Gap mmol/L BUN (7-17) mg/dL Creatinine (0.52-1.04) mg/dL Est GFR (CKD-EPI)AfAm (>60 ml/min/1.73 sqM) Est GFR (CKD-EPI)NonAf (>60 ml/min/1.73 sqM) Glucose (74-99) mg/dL POC Glucose (mg/dL) (70-110) mg/dL POC Glu Coach Operator ID Calcium (8.4-10.2) mg/dL Total Bilirubin (0.2-1.3) mg/dL AST (14-36) U/L ALT (4-34) U/L Alkaline Phosphatase (38-126) U/L Total Protein (6.3-8.2) g/dL Albumin (3.5-5.0) g/dL Urine Color Yellow Urine Appearance Cloudy H (Clear) Urine pH 5.5 (5.0-8.0) Ur Specific [place] 1.031 (1.001-1.035) Urine Protein Trace H (Negative) Urine Glucose (UA) 4+ H (Negative) Urine Ketones Negative (Negative) Urine Blood Negative (Negative) Urine Nitrite Negative (Negative) Urine Bilirubin Negative (Negative) Urine Urobilinogen <2.0 (<2.0) mg/dL Ur Leukocyte Esterase Negative (Negative) Urine RBC 4 (0-5) /hpf Urine WBC 5 (0-5) /hpf Ur Squamous Epith Cells 16 H (0-4) /hpf Urine Bacteria Few H (None) /hpf Hyaline Casts 19 H (0-2) /lpf Urine Mucus Many H (None) /hpf Urine HCG, Qual (Not Detectd) Urine Opiates Screen Not Detected (NotDetected) Ur Oxycodone Screen Not Detected (NotDetected) Urine Methadone Screen Not Detected (NotDetected) Ur Barbiturates Screen Not Detected (NotDetected) U Tricyclic Antidepress Not Detected (NotDetected) Ur Phencyclidine Scrn Not Detected (NotDetected) Ur Amphetamines Screen Detected H (NotDetected) U Methamphetamines Scrn Detected H (NotDetected) U Benzodiazepines Scrn Not Detected (NotDetected) Urine Cocaine Screen Not Detected (NotDetected) U Marijuana (THC) Screen Detected H (NotDetected) SARS-CoV-2 (PCR) Not Detected (Not Detectd) 04/04/24 Range/Units 06:44 WBC (3.8-10.6) k/uL RBC (3.80-5.40) m/uL Hgb (11.4-16.0) gm/dL Hct (34.0-46.0) % MCV (80.0-100.0) fL MCH (25.0-35.0) pg MCHC (31.0-37.0) g/dL RDW (11.5-15.5) % Plt Count (150-450) k/uL MPV Neutrophils % % Lymphocytes % % Monocytes % % Eosinophils % % Basophils % % Neutrophils # (1.3-7.7) k/uL Lymphocytes # (1.0-4.8) k/uL Monocytes # (0-1.0) k/uL Eosinophils # (0-0.7) k/uL Basophils # (0-0.2) k/uL Sodium (137-145) mmol/L Potassium (3.5-5.1) mmol/L Chloride (98-107) mmol/L Carbon Dioxide (22-30) mmol/L Anion Gap mmol/L BUN (7-17) mg/dL Creatinine (0.52-1.04) mg/dL Est GFR (CKD-EPI)AfAm (>60 ml/min/1.73 sqM) Est GFR (CKD-EPI)NonAf (>60 ml/min/1.73 sqM) Glucose (74-99) mg/dL POC Glucose (mg/dL) (70-110) mg/dL POC Glu Coach Operator ID Calcium (8.4-10.2) mg/dL Total Bilirubin (0.2-1.3) mg/dL AST (14-36) U/L ALT (4-34) U/L Alkaline Phosphatase (38-126) U/L Total Protein (6.3-8.2) g/dL Albumin (3.5-5.0) g/dL Urine Color Urine Appearance (Clear) Urine pH (5.0-8.0) Ur Specific [place] (1.001-1.035) Urine Protein (Negative) Urine Glucose (UA) (Negative) Urine Ketones (Negative) Urine Blood (Negative) Urine Nitrite (Negative) Urine Bilirubin (Negative) Urine Urobilinogen (<2.0) mg/dL Ur Leukocyte Esterase (Negative) Urine RBC (0-5) /hpf Urine WBC (0-5) /hpf Ur Squamous Epith Cells (0-4) /hpf Urine Bacteria (None) /hpf Hyaline Casts (0-2) /lpf Urine Mucus (None) /hpf Urine HCG, Qual Not Detected (Not Detectd) Urine Opiates Screen (NotDetected) Ur Oxycodone Screen (NotDetected) Urine Methadone Screen (NotDetected) Ur Barbiturates Screen (NotDetected) U Tricyclic Antidepress (NotDetected) Ur Phencyclidine Scrn (NotDetected) Ur Amphetamines Screen (NotDetected) U Methamphetamines Scrn (NotDetected) U Benzodiazepines Scrn (NotDetected) Urine Cocaine Screen (NotDetected) U Marijuana (THC) Screen (NotDetected) SARS-CoV-2 (PCR) (Not Detectd) Disposition Clinical Impression: Psychosis, Methamphetamine abuse Disposition: TRANSFER TO PSYCH HOSP/UNIT Condition: Stable Is patient prescribed a controlled substance at d/c from ED?: No Referrals: Tj Kumar MD [Primary Care Provider] - 1-2 days
[2024-04-04 15:48] VITALS: RESP 16
[2024-04-04 16:47] LABS: Glucose,Whole Blood 239 mg/dL (70-110)
[2024-04-04] MEDS ORDERED: DEXTROSE 50% SYRINGE 50 ML IVP PRN ×2 (17:04)
[2024-04-04] MEDS: ACETAMINOPHEN TAB 325 MG TAB PO PRN (17:19)
[2024-04-04] MEDS: INSULIN ASPART (NovoLOG) 100 UNIT/ML VIAL SQ SCH (17:21)
[2024-04-04 18:13] VITALS: TEMP 98.6
[2024-04-04 18:15] LABS: Glucose,Whole Blood 267 mg/dL (70-110)
[2024-04-04 19:33] LABS: Glucose,Whole Blood 195 mg/dL (70-110)
[2024-04-04 22:20] VITALS: BP 130/78; PULSE 90
== END 2024-04-04 22:20 ==
LOC: EC 21:22
CPT/HCPCS: 36415; 80053; 80306; 81001; 81025; 82075; 85025; 87635; 99285

== ENCOUNTER → 2024-11-25 | Outpatient (CLI) | payer MEDICARE ==
--- NOTE | 2024-11-25 15:28 | MM ---
Reason for Exam: Screening (asymptomatic). Last mammogram was performed 3 year(s) and 9 month(s) ago. Patient History: Menarche at age 11. First Full-Term at age 17. Premenopausal. Hormonal Contraceptives for 5 years from age 33 until age 39. Risk Values: Laurel 5 year model risk: 0.6%. NCI Lifetime model risk: 7.0%. Prior Study Comparison: 01/29/2021 Bilateral Screening Mammogram, [facility]. Tissue Density: There are scattered areas of fibroglandular density. Findings: Analyzed By CAD. There are a few benign-appearing round calcifications bilaterally redemonstrated. There is no suspicious group of microcalcifications or new suspicious mass in either breast. Overall Assessment: Benign, BI-RAD 2 Management: Screening Mammogram of both breasts in 1 year. . Patient should continue monthly self-breast exams. A clinical breast exam by your physician is recommended on an annual basis. This exam should not preclude additional follow-up of suspicious palpable abnormalities. Note on Laurel scores and lifetime risk: 1. A Laurel score greater than 3% is considered moderate risk. If this is the case, consider specialist referral to assess eligibility for a risk reducing agent. 2. If overall lifetime risk for the development of breast cancer is 20% or higher, the patient may qualify for future screening with alternating mammogram and breast MRI. [facility], , 11/25/2024 3:25 PM. Electronically signed and approved by: Evelio Crawford M.D.
== END | disposition home or self-care (01) ==
LOC: RADMAMWWP 14:17
PROVIDERS: ATTEND Family Medicine
DX: Z12.31 Encounter for screening mammogram for malignant neoplasm of breast (principal); R92.323 Mammographic fibroglandular density, bilateral breasts; Z92.0 Personal history of contraception
CPT/HCPCS: 77063; 77067

== ENCOUNTER → 2025-02-10 | Outpatient (CLI) | payer MEDICARE, OTHER ==
--- NOTE | 2025-02-10 21:38 | US ---
EXAMINATION TYPE: US venous doppler duplex LE BI DATE OF EXAM: 02/10/2025 3:28 PM COMPARISON: NONE CLINICAL INDICATION: Female, 45 years old with history of E11.69 I83.93 ASYMPTOMATIC VARICOSE VEINS O F BILAT; pain and swelling TECHNIQUE: The lower extremity deep venous system is examined utilizing real time linear array sonog dave with graded compression, color doppler sonography, and spectral doppler. SIDE PERFORMED: Bilateral FINDINGS: VESSELS IMAGED: Common Femoral Vein Deep Femoral Vein Greater Saphenous Vein * Femoral Vein Popliteal Vein Small Saphenous Vein * Proximal Calf Veins (* superficial vessels) Right Leg: Appears negative for DVT Left Leg: Appears negative for DVT IMPRESSION: No evidence for DVT within the bilateral lower extremities imaged from the groin to the upper calves. [facility], , 02/10/2025 9:36 PM
== END | disposition home or self-care (01) ==
LOC: RADUSWWP 14:47
PROVIDERS: ATTEND Family Medicine
DX: E11.69 Type 2 diabetes mellitus with other specified complication (principal); I83.93 Asymptomatic varicose veins of bilateral lower extremities
CPT/HCPCS: 93970

== ENCOUNTER → 2025-02-10 | Outpatient (CLI) | payer MEDICARE, OTHER ==
--- NOTE | 2025-02-11 07:30 | US ---
EXAMINATION TYPE: US arterial LE single level DATE OF EXAM: 02/10/2025 3:11 PM COMPARISONS: None. CLINICAL INDICATION: Female, 45 years old with history of E11.69 TYPE 2 DIABETES I83.93 VARICOSE VEIN S; TECHNIQUE: Systolic pressures were taken of the upper and lower extremity arteries with ankle-brachia l indices and toe brachial indices calculated bilaterally. History of: Smoker: current Hypertension: no Diabetic: yes Hyperlipidemia: no TIA/CVA: no Previous Vascular Surgery: no CT: no Vascular Ulcers: no Gangrene: no FINDINGS: Doppler Waveforms: Right: Multiphasic Left: Multiphasic Brachial Artery systolic pressure: Right: 119 Left: 115 Posterior Tibial artery systolic pressure: Right: 138 Left: 147 Dorsalis Pedis artery systolic pressure: Right: 131 Left: 122 Ankle-Brachial Indices: Right: 1.16 Left: 1.24 IMPRESSION: NOAH: Right: Normal 0.9 - 1.4, Recommendation: None Left: Normal 0.9 - 1.4, Recommendation: None [facility], , 02/11/2025 7:27 AM
== END | disposition home or self-care (01) ==
LOC: RADUSWWP 14:41
PROVIDERS: ATTEND Family Medicine
DX: E11.69 Type 2 diabetes mellitus with other specified complication (principal); I83.93 Asymptomatic varicose veins of bilateral lower extremities
CPT/HCPCS: 93922